=== PATIENT | female | born 1990 | race Caucasian/White ===

== ENCOUNTER 2019-11-23 16:54 | Emergency (ER) | payer SELFPAY ==
[2019-11-23 18:26] LABS: COLLECTION METHOD CLEAN CATCH
[2019-11-23 18:38] LABS: MUCOUS Present /lpf; PH 7 (5-8); URINE APPEARANCE Hazy; URINE BACTERIA Rare /hpf; URINE BILIRUBIN Negative (NEGATIVE); URINE BLOOD 3+ (NEGATIVE); URINE COLOR Yellow; URINE GLUCOSE Negative (NEGATIVE); URINE KETONE Negative (NEGATIVE); URINE LEUKOCYTE ESTERASE Negative (NEGATIVE); URINE NITRATE Negative (NEGATIVE); URINE PROTEIN(semi-quant) Negative (NEGATIVE); URINE RBC 20-50 /hpf; URINE UROBILINOGEN Negative (NEGATIVE)
[2019-11-23 18:42] VITALS: BP 128/83; PULSE 100
[2019-11-23] MEDS ORDERED: CEPHALEXIN500 M1 PO (18:48)
[2019-11-23 19:00] VITALS: TEMP 100.2
== END 2019-11-23 19:00 | disposition home or self-care (01) ==
LOC: COL.ER 16:54
PROVIDERS: Physician Assistant
DX: R51 Headache (principal); B34.9 Viral infection, unspecified; N39.0 Urinary tract infection, site not specified; E66.01 Morbid (severe) obesity due to excess calories; Z20.818 Contact with and (suspected) exposure to other bacterial communicable diseases
CPT/HCPCS: J1885

== ENCOUNTER 2020-07-19 17:49 | Emergency (ER) | payer SELFPAY ==
[~2020-07-19] VITALS: Ht 170.2 cm; Wt 136.4 kg
[~2020-07-19 17:49] MED LIST: CEPHALEXIN500 M1 PO; MACROBID 1100 MG/CAP PO
[2020-07-19 17:56] VITALS: TEMP 97.9
[2020-07-19 19:25] LABS: BASO % 0.4 % (0.0-2.0); EOS # 0.5 (0.0-0.7); EOS % 4.7 % (0-4.0); GRAN # 6.5 (1.4-6.5); GRAN % 61.8 % (42.2-75.2); HEMATOCRIT 38.9 % (37.0-47.0); HEMOGLOBIN 12.7 g/dl (12.5-16.0); LYMPH # 2.7 (1.2-3.4); LYMPH % 25.5 % (20.0-51.0); MEAN CELL VOLUME 78 fl (80.0-100.0); MEAN CORPUSCULAR HEMOGLOBIN 25 pg (27.0-31.0); MEAN CORPUSCULAR HGB CONC 33 g/dl (33.0-37.0); MEAN PLATELET VOLUME 9.2 fl (7.4-10.4); MONO # 0.8 (0.1-0.6); MONO % 7.3 % (1.7-9.3); PLATELET COUNT 317 K/mm3 (130-400); RED BLOOD COUNT 5.02 M/mm3 (4.10-5.30); REDCELL DISTRIBUTION WIDTH-CV 15.2 % (11.5-14.5)
[2020-07-19 19:35] LABS: ALANINE AMINOTRANSFERASE 39 U/L (4-34); ALKALINE PHOSPHATASE 76 U/L (50-136); ANION GAP 7 mmol/L (7-16); AST,SGOT 46 U/L (15-37); BILIRUBIN,TOTAL 0.3 mg/dL (0.0-1.0); BLOOD UREA NITROGEN 15 mg/dL (7-17); CALCIUM 9.4 mg/dL (8.4-10.2); CARBON DIOXIDE 30 mmol/L (22-30); CHLORIDE 101 mmol/L (98-107); CREATININE, serum 0.79 (0.52-1.25); GLUCOSE 108 mg/dL (74-106); POTASSIUM 3.9 mmol/L (3.4-5.0); SODIUM 137 mmol/L (137-145); TOTAL PROTEIN 7.7 gm/dL (6.4-8.2)
[2020-07-19 19:51] LABS: TROPONIN-I < 0.012 ng/mL (0.000-0.035)
[2020-07-19 20:30] VITALS: BP 116/80; PULSE 83
== END 2020-07-19 20:30 | disposition home or self-care (01) ==
LOC: COL.ER 17:49
PROVIDERS: Physician Assistant
DX: R07.89 Other chest pain (principal)

== ENCOUNTER 2021-10-27 19:12 | Emergency (ER) | payer SELFPAY ==
[~2021-10-27] VITALS: Ht 175.3 cm; Wt 145.5 kg
[2021-10-27 19:24] VITALS: TEMP 98
[2021-10-27] MEDS ORDERED: MOTRIN 800800 MG/TAB PO ×2 (21:42→21:44)
[2021-10-27 22:03] VITALS: BP 122/81; PULSE 74
== END 2021-10-27 22:03 | disposition home or self-care (01) ==
LOC: COL.ER 19:12
DX: M72.2 Plantar fascial fibromatosis (principal); Z28.310 Unvaccinated for COVID-19